=== PATIENT | female | born 1960 | race Caucasian/White ===

== ENCOUNTER 2018-10-17 07:19 | Emergency (ER) ==
[2018-10-17 07:25] VITALS: TEMP 98.8; BMI 37.6
--- NOTE | 2018-10-17 07:46 | ED.PDOC ---
General ED Provider: Dr. ADAM SHANKS Chief Complaint: Respiratory Complaint Stated Complaint: cough and wheezing seven days now.Called doctor placed on prednisone and augmentin.No relief.Contact with coughing children.Two "leaky" heart valves. Hypertension on Lisinopril. Time Seen by Physician: 07:25 Mode of Arrival: Walk-In Information Source: Patient Exam Limitations: No limitations Primary Care Provider: ANURADHA TORRES Nursing and Triage Documentation Reviewed and Agree: Yes Does patient meet sepsis criteria?: No System Inflammatory Response Syndrome: Not Applicable Sepsis Protocol: For patient's 13 years and over: Temp is 96.8 and below OR 101 and greater Pulse >90 BPM Resp >20/minute Acutely Altered Mental Status Are patient's symptoms suggestive of a new infection, such as: -Pneumonia -Skin, Soft Tissue -Endocarditis -UTI -Bone, Joint Infection -Implantable Device -Acute Abdominal Infection -Wound Infection -Meningitis -Blood Stream Catheter Infection -Unknown Respiratory Complaint Exam - Respiratory Complaint/Exam Onset/Duration: seven days now Symptoms Are: Still present Timing: Constant Initial Severity: Moderate Current Severity: Moderate Location: Chest Character: Reports: Non-productive cough Aggravating: Reports: URI Alleviating: Reports: None Associated Signs and Symptoms: Reports: Chills, Wheezing Related History: Reports: Similar episode History of Healthcare-Acquired Pneumonia: No Related Surgical History: Reports: None Pulmonary Embolism Risk Factors: None Cardiac Risk Factors: Reports: Hypertension Pseudomonas Risk Factors: Reports: None Tuberculosis Risk Factors: Reports: None Status Asthmaticus Risk Factors: Reports: None Home Oxygen Use: No Recent Stress Test: No Recent Echo/LV Function: No Current Antibiotic Use: Yes (on augmentin) Current Asthma Medication Use: Yes (started Proventil at home no effect) Respiratory Distress: None Dysphagia Present: No Stridor Present: No JVD Present: No Accessory Muscle Use: No Retractions: Not Present Diminished Breath Sounds: Yes (bilateral) Sinus Tenderness: None Grunting Respirations: No Kussmaul Respirations: No Differential Diagnoses: Asthma, Pneumonia, Lower Resp. Infection Review of Systems - Review Of Systems Constitutional: Reports: Other Eyes: Reports: No symptoms Ears, Nose, Mouth, Throat: Reports: No symptoms Respiratory: Reports: Cough, Wheezing Cardiac: Reports: No symptoms GI: Reports: No symptoms : Reports: No symptoms Musculoskeletal: Reports: No symptoms Neurological: Reports: No symptoms Endocrine: Reports: No symptoms Hematologic/Lymphatic: Reports: No symptoms All Other Systems: Reviewed and Negative Past Medical History - Past Medical History Previously Healthy: Yes (no respiratory but HTN and heart valves) Endocrine: Reports: None Cardiovascular: Reports: Hypertension, Other Respiratory: Reports: None, Other Hematological: Reports: None Gastrointestinal: Reports: None Genitourinary: Reports: None Neuro/Psych: Reports: None Musculoskeletal: Reports: None Cancer: Reports: None Last Menstrual Period: menopause - Surgical History General Surgical History: Reports: None - Family History Family History: Reports: None - Social History Smoking Status: Former smoker Hx Substance Use: No Alcohol Screening: None - Immunizations Tetanus Shot up to Date: No Influenza Vaccine within 12 Months: No Pneumococcal Vaccine up to Date: No Physical Exam - Physical Exam Appearance: Well-appearing Ill-appearing: None Pain Distress: None Eyes: NAVA ENT: Ears normal Neck: Supple Respiratory: Breath sounds diminished Cardiovascular: RRR Musculoskeletal: Normal strength Skin: Warm Neurological: Sensation intact Critical Care Note - Critical Care Note Total Time (mins): 0 Course - Course Hematology/Chemistry: 10/17/18 08:40 Orders, Labs, Meds: Lab Review 10/17/18 10/17/18 08:40 08:40 WBC 11.19 H RBC 4.76 Hgb 14.2 Hct 42.8 MCV 89.9 MCH 29.8 MCHC 33.2 RDW Coeff of Mine 12.7 Plt Count 280 Immature Gran % (Auto) 0.6 Neut % (Auto) 56.7 Lymph % (Auto) 33.8 Mercer % (Auto) 8.2 Eos % (Auto) 0.3 Baso % (Auto) 0.4 Immature Gran # (Auto) 0.1 Neut # (Auto) 6.4 Lymph # (Auto) 3.8 H Mercer # (Auto) 0.9 Eos # (Auto) 0.0 Baso # (Auto) 0.0 TSH 6.120 H Orders Category Date Time Status EKG-(ED ONLY) Stat CARDIO 10/17/18 08:05 Completed NEBULIZER TREATMENT Stat CARDIO 10/17/18 08:04 Completed NEBULIZER TREATMENT Stat CARDIO 10/17/18 09:27 Ordered Vital signs [ED VITAL SIGNS] .ONCE EMERGENCY 10/17/18 08:12 Active CBC W/ AUTO DIFF Stat LAB 10/17/18 08:40 Completed TSH [THYROID STIMULATING HORMONE] Stat LAB 10/17/18 08:40 Completed Albuterol Sulfate 0.083% Neb [Albuterol 0.083% Neb] MEDS 10/17/18 08:02 Discontinued 1 vial NEB ONCE STA Albuterol Sulfate 0.083% Neb [Albuterol 0.083% Neb] MEDS 10/17/18 09:26 Stat 1 vial NEB ONCE STA Clonidine HCl [Catapres] MEDS 10/17/18 08:24 Discontinued 0.1 mg PO ONCE STA CHEST, 2 VIEWS PA & LAT Stat RADS 10/17/18 08:01 Completed Medications Discontinued Medications Generic Name Dose Route Start Last Admin Trade Name Vickeyq PRN Reason Stop Dose Admin Albuterol Sulfate 1 vial 10/17/18 08:02 10/17/18 08:12 Albuterol 0.083% Neb NEB 10/17/18 08:03 1 vial ONCE STA Administration Albuterol Sulfate 1 vial 10/17/18 09:26 10/17/18 09:37 Albuterol 0.083% Neb NEB 10/17/18 09:27 1 vial ONCE STA Administration Clonidine 0.1 mg 10/17/18 08:24 10/17/18 08:44 Catapres PO 10/17/18 08:25 0.1 mg ONCE STA Administration Vital Signs: Temp Pulse Resp BP Pulse Ox 10/17/18 09:15 143/92 H 10/17/18 08:37 151/110 H 10/17/18 07:19 98.8 F 89 16 176/123 H 96 Departure - Departure Time of Disposition: 09:46 Disposition: HOME SELF-CARE Discharge Problem: Wheezing, Bronchitis Instructions: Reactive Airways Disease (ED) Condition: Good Pt referred to PMD for follow-up: Yes IPMP verified?: No Additional Instructions: It was noted that blood pressure was elevated at the outset 173/110 and began optimizing at 146.89 towards the end of the ED visit and after 0.i of Clonidine.TSH was 6.125.Patiwent may e taking an insufficieyt does of Levothyroximn 0.78 mcg.She will can her doctoe for adjustement, Allergies/Adverse Reactions: Allergies ciprofloxacin [From Cipro] Adverse Reaction (Verified 10/17/18 07:29) Iodinated Contrast- Oral and IV Dye Adverse Reaction (Verified 10/17/18 07:29) Home Medications: Ambulatory Orders Albuterol Sulfate [Ventolin Hfa] 18 gm IH PRN PRN 10/17/18 Amoxicillin/Potassium Clav [Augmentin 875-125 mg Tab] 1 tab PO Q12HR 10/17/18 Ibuprofen/Famotidine [Duexis 800-26.6 mg Tablet] 1 each PO BID 10/17/18 Levothyroxine Sodium [Synthroid] 75 mcg PO QDAC 10/17/18 Lisinopril 2.5 mg PO DAILY 10/17/18 Pravastatin Sodium [Pravachol] 40 mg PO BEDTIME 10/17/18 Prednisone 20 mg PO DAILY 10/17/18 Disposition Discussed With: Patient, Family
[2018-10-17] MEDS ORDERED: ALBUTEROL 0.083% NEB NEB STA ×2 (08:02→09:26)
[2018-10-17] MEDS ORDERED: CATAPRES PO STA (08:24)
--- NOTE | 2018-10-17 09:04 | DI ---
Exam: Two-view chest x-ray. Date: 10/17/2018. Comparison: 04/15/2017. HISTORY: Cough. FINDINGS: No acute osseous abnormalities are seen and surgical clips are present overlying the lower right thorax. The lungs are clear with calcified granulomas. Cardiac silhouette and pulmonary vasc ulature are normal. Impression: No acute intrathoracic findings.
[2018-10-17 09:15] VITALS: BP 143/92
== END 2018-10-17 10:09 | disposition home or self-care (01) ==
LOC: ED 07:19
DX: J40 Bronchitis, not specified as acute or chronic (principal); I10 Essential (primary) hypertension; Z79.899 Other long term (current) drug therapy
CPT/HCPCS: 36415; 84443; 85025; 93005; 93010; 94640; 99283